=== PATIENT | female | born 1960 | race Caucasian/White ===

== ENCOUNTER 2024-08-27 12:36 | Outpatient (CLI) | payer MEDICARE, OTHER | END 2024-08-27 12:37 | disposition home or self-care (01) | LOC: CSHMRI 12:36 | PROVIDERS: ATTEND Psychiatry & Neurology Neurology | DX: G93.9 Disorder of brain, unspecified (principal); M47.812 Spondylosis without myelopathy or radiculopathy, cervical region; M48.02 Spinal stenosis, cervical region; M50.322 Other cervical disc degeneration at C5-C6 level; M50.323 Other cervical disc degeneration at C6-C7 level; E04.1 Nontoxic single thyroid nodule; M47.814 Spondylosis without myelopathy or radiculopathy, thoracic region | CPT/HCPCS: 72156; 72157; 82565 ==